=== PATIENT | male | born 1965 | race Caucasian/White ===

== ENCOUNTER 2023-02-23 23:13 | Inpatient (IN) | payer OTHER, MEDICARE, SELFPAY ==
--- NOTE | ~2023-02-23 | XR_ITS ---
XR chest 1V portable DATE: 02/24/2023 01:37 INDICATION: Cough TECHNIQUE: Portable upright AP chest on February 24, 2023 3 hours COMPARISON: January 12, 2006 portable AP chest FINDINGS: Heart size appears within normal limits considering magnification associated with AP projec tion. There is mild aortic unfolding. No hilar or mediastinal enlargement. No pulmonary infiltrate or consolidation, pleural effusion or pulmonary vascular congestion or pneumo thorax. IMPRESSION: No active cardiopulmonary disease Reviewed, dictated and finalized at location [facility].
--- NOTE | ~2023-02-23 | XR_ITS ---
Supine portable views of the abdomen Clinical history: Small bowel obstruction COMPARISON: 02/24/2023 Findings: NG tube in place. Bowel gas pattern is nonspecific. No evidence for obstruction or free air . No abnormal mass lesion or calcification is seen. Lumbosacral spinal fixation hardware again noted. Impression: Nonspecific bowel gas pattern, with NG tube in place. Reviewed, dictated and finalized at location . Impression: Nonspecific bowel gas pattern, with NG tube in place.
--- NOTE | ~2023-02-23 | XR_ITS ---
XR abdomen NG/feed tube insert DATE: 02/24/2023 03:48 INDICATION: NG tube placement TECHNIQUE: Portable upright AP view of the abdomen on 03/06/2023 at 0337 hours COMPARISON: None FINDINGS: An NG tube is present, the distal tip overlying the upper body of the stomach, the proximal side-port approximately 4.5 cm distal to the diaphragmatic hiatus. IMPRESSION: NG tube in the upper body of stomach Reviewed, dictated and finalized at [facility]. Reviewed, dictated and finalized at location A.
--- NOTE | ~2023-02-23 | XR_ITS ---
Supine portable views of the abdomen Clinical history: Small bowel obstruction COMPARISON: 02/25/2023 Findings: NG tube in satisfactory position. Bowel gas pattern is nonspecific. No evidence for free ai r. No abnormal mass lesion or calcification is seen. Stable lumbosacral spinal fixation hardware. Impression: NG tube in place with nonspecific bowel gas pattern. Reviewed, dictated and finalized at [facility]. Impression: NG tube in place with nonspecific bowel gas pattern.
--- NOTE | ~2023-02-23 | XR_ITS ---
Supine and upright views of the abdomen Clinical history: Small bowel obstruction, NG tube placement Findings: NG tube is in satisfactory position. Bowel gas pattern nonspecific. No free air evident. No abnormal mass lesion or calcification is seen. Stable lumbosacral spinal fixation hardware. Impression: Nonspecific bowel gas pattern, with NG tube in place. Reviewed, dictated and finalized at [facility]. Impression: Nonspecific bowel gas pattern, with NG tube in place.
--- NOTE | ~2023-02-23 | CT_ITS ---
EXAMINATION: CT abdomen pelvis w con DATE: 02/24/2023 01:43 INDICATION: Generalized abdominal pain and bloating TECHNIQUE: Computed tomography (CT) of the abdomen and pelvis was performed with 100 CC Omnipaque 350 intravenous contrast. Automated exposure control and iterative reconstruction technique were employe d. Exam dose: 1201.15 mGy-cm total exam DLP. COMPARISON: None. FINDINGS: The included lower lung zones are clear. Normal heart size. No pericardial or pleural effus ion. There is hepatic steatosis. No hepatic space-occupying mass lesion is detected. The gallbladder is un remarkable. No pericholecystic fluid or fat stranding or gallbladder wall thickening. No bile duct or pancreatic duct dilatation. No pancreatic mass lesion, calcification or ductal dilatation. Normal sp lenic size. Normal morphology of the adrenal glands. There is a small right renal cyst. The kidneys are otherwise unremarkable. No urinary tract calculus or hydroureteronephrosis. There is moderate prostatomegaly and some prominent prostate calcification. Moderate diffuse thickeni ng of the urinary bladder wall. Normal caliber of the abdominal aorta. No intraperitoneal or retroperitoneal or pelvic mass lesion or adenopathy or ascites. Normal appendix. There are multiple small bowel air-fluid levels without small bowel dilatation which may be due to enteritis or mild adynamic ileus. No bowel obstruction, bowel wall thickening, pneumat osis or intraperitoneal free air. Small right inguinal fat-containing hernia. Small fat-containing umbilical hernia. Status post posterior and interbody lumbar spine surgical fusion at L4-S1. IMPRESSION: Enteritis or mild adynamic ileus is suggested by numerous small bowel air-fluid levels; no bowel obstruction or intraperitoneal free air Normal appendix Hepatic steatosis Prostate enlargement and calcification Small fat-containing right inguinal hernia and umbilical hernia Status post posterior and interbody spinal fusion at L4-S1 Reviewed, dictated and finalized at [facility]. Reviewed, dictated and finalized at location [facility]. IMPRESSION: Enteritis or mild adynamic ileus is suggested by numerous small jocelyne wel air-fluid levels; no bowel obstruction or intraperitoneal free air Normal appendix Hepatic steatosis Prostate enlargement and calcification Small fat-containing right inguinal hernia and umbilical hernia Status post posterior and interbody spinal fusion at L4-S1
--- NOTE | ~2023-02-23 | XR_ITS ---
EXAMINATION: XR UGI water soluble w sbs DATE: 02/27/2023 13:17 INDICATION: Abdominal distention. TECHNIQUE: Water-soluble contrast was injected into the nasogastric tube. Fluoroscopy of the stomach and small bowel was performed. Fluoroscopy exposure time was 0.1 minutes. Radiographs of the abdomen were obtained. The total number of images was 15. COMPARISON: CT abdomen and pelvis 02/24/2023 FINDINGS: UPPER GASTROINTESTINAL SERIES: The nasogastric tube tip is in the stomach. There is no hiatal hernia. The stomach shows a normal fol ding pattern. SMALL BOWEL SERIES: The small bowel shows a normal folding pattern. Specifically, the terminal ileum is normal. Transit t beltran to the colon was 1 hour. There are changes of anterior and posterior fusion procedures from L4 to S1. IMPRESSION: 1. Normal upper gastrointestinal series. 2. Normal small bowel series. Reviewed, dictated and finalized at location A.
[2023-02-23 23:16] VITALS: BP 151/95; PULSE 120; RESP 28; O2SAT 99
[2023-02-24] VITALS (8 sets, daily range): BP systolic 124–167; BP diastolic 69–98; PULSE 1–111; RESP 15–26; TEMP 36.9–37.6; O2SAT 95–98; BMI 35.7
[2023-02-24 00:36] LABS: Basophils Percent Auto 0.4 % (0.2-1.2); Eosinophils Absolute Auto 0.1 K/mm3 (0-0.3); Eosinophils Percent Auto 0.7 % (0-4.4); Hematocrit 45.8 % (42.0-52.0); Hemoglobin 14.3 g/dL (14.0-18.0); Immature Granulocyte Absolute 0.05 K/mm3 (0.00-0.031); Immature Granulocyte Percent A 0.5 % (0-0.5); Lymphocytes Absolute Auto 0.35 K/mm3 (0.9-3.2); Lymphocytes Percent Auto 3.3 % (18.3-44.2); Mean Corpuscular HGB Conc 31.2 g/dl (32-36); Mean Corpuscular Hemoglobin 23.6 pg (26-34); Mean Corpuscular Volume 75.6 fl (80-100); Mean Platelet Volume 9.5 fl (7.4-10.4); Monocytes Absolute Auto 0.3 K/mm3 (0.1-0.6); Monocytes Percent Auto 2.4 % (2.6-8.5); Neutrophils Absolute Auto 9.8 K/mm3 (1.3-6.7); Neutrophils Percent Auto 92.7 % (45.5-73.1); Platelet Count Result 322 k/mm3 (150-375); Red Blood Count 6.06 M/mm3 (4.6-6.20); Red Cell Distribution Width 21.3 % (11.5-14.5); White Blood Count 10.6 K/mm3 (4.5-10.0)
[2023-02-24 00:46] LABS: Alanine Aminotransferase 35 U/L (6-50); Albumin Level 4.7 g/dL (3.5-5.1); Alkaline Phosphatase 76 U/L (38-126); Anion Gap 10 mmol/L (8-16); Aspartate Amino Transferase 37 U/L (17-59); Bilirubin,Total 0.6 mg/dL (0.2-1.3); Blood Urea Nitrogen 17 mg/dL (9-20); Calcium 8.5 mg/dL (8.4-10.2); Carbon Dioxide 25 mmol/L (22-30); Chloride 103 mmol/L (98-107); Estimated CRCL calculation 68 ml/min; Estimated Glomerular Filt Rate > 60; Glucose 162 mg/dL (65-110); Lipase 100 U/L (23-300); Sodium 138 mmol/L (137-145)
[2023-02-24 01:01] LABS: Appearance Urine Clear (Clear); Bacteria Urine None Seen /hpf; Bilirubin Urine Negative (Negative); Blood Urine Negative (Negative); Color Urine Yellow (Yellow); Glucose Urine UA Trace mg/dL (Negative); Ketones Urine Trace mg/dL (Negative); Leukocyte Esterase Ur Negative LEU/UL (Negative); Nitrate Urine Negative (Negative); Non Pathogenic Casts 0-2; Protein Urine Trace mg/dL (Negative); RBC Urine 0-2 /hpf (0-2); Specific Grav Ur 1.028 (1.001-1.035); Squamous Epithelial Cell Urine None seen /hpf (Few); WBC Urine 0-5 /hpf; pH Urine 5.5 (5.0-9.0)
[2023-02-24 01:06] LABS: Ovalocytes 1+ (NORMAL); Platelet Estimate Adequate (Adequate); Schistocytes None Seen (NORMAL)
[2023-02-24 01:10] LABS: Add Urine Microscopic? YES
--- NOTE | 2023-02-24 01:24 | ED.ABDPAIN ---
HPI - Abdominal Pain General Chief Complaint: Abdominal Pain <Kitty Meyer PA-C - Last Filed: 02/24/23 17:08> Stated Complaint: abd'l pain, n/v, headache <Kitty Meyer PA-C - Last Filed: 02/24/23 17:08> Time Seen by Provider: 02/23/23 23:47 <Kitty Meyer PA-C - Last Filed: 02/24/23 17:08> History of Present Illness HPI narrative: 57-year-old male with a history of GERD reports for evaluation of abdominal pain and bloating for 6 hours with 3 episodes of nonbloody vomiting. Patient reports the abdominal pain is worse in the right upper quadrant and periumbilical region. He is also complaining of a nonproductive cough that started yesterday. Reports having hot and cold flashes. Last BM prior to arrival, apeared small in volume per patient. Denies fever, body aches, chest pain, melena, hematochezia, hematemesis, urinary complaints. No history of prior abdominal surgeries. Patient denies obstipation. <Kitty Meyer PA-C - Last Filed: 02/24/23 17:08> Related Data Home Medications: Home Medications Medication Instructions Recorded Confirmed albuterol sulfate 90 mcg/actuation 2 puff inhalation Q4-6H PRN 02/23/23 02/24/23 aerosol inhaler Shortness Of Breath budesonide 160 mcg-glycopyr 9 2 inh inhalation BID 02/23/23 02/24/23 mcg-formot 4.8 mcg/actuation HFA inhaler (Breztri Aerosphere) bupropion HCl 150 mg tablet,12 hr 150 mg PO BID 02/23/23 02/24/23 sustained-release buspirone 10 mg tablet 10 mg PO TIDWMEAL 02/23/23 02/24/23 ferrous sulfate 325 mg (65 mg 325 mg PO DAILY 02/23/23 02/24/23 iron) tablet furosemide 20 mg tablet 20 mg PO DAILY 02/23/23 02/24/23 hydrochlorothiazide 25 mg tablet 25 mg PO DAILY 02/23/23 02/24/23 losartan 100 mg tablet 100 mg PO DAILY 02/23/23 02/24/23 meloxicam 15 mg tablet 15 mg PO DAILY 02/23/23 02/24/23 omeprazole 40 mg capsule,delayed 40 mg PO DAILY 02/23/23 02/24/23 release amlodipine 10 mg tablet 10 mg PO DAILY 02/24/23 02/24/23 fluticasone propionate 50 1 spray intranasal DAILY 02/24/23 02/24/23 mcg/actuation nasal spray,suspension magnesium oxide 400 mg (241.3 mg 400 mg PO EVERY OTHER DAY 02/24/23 02/24/23 magnesium) tablet potassium 99 mg tablet 99 mg PO DAILY 02/24/23 02/24/23 <Kitty Meyer PA-C - Last Filed: 02/24/23 17:08> Allergies/Adverse Reactions: Allergies Allergy/AdvReac Type Severity Reaction Status Date / Time No Known Allergies Allergy Verified 02/23/23 23:25 <Kitty Meyer PA-C - Last Filed: 02/24/23 17:08> Review of Systems Review of Systems: CONSTITUTIONAL: Denies feve EYES: Denies visual changes, redness, or discharge. ENT: Denies rhinorrhea, congestion, sore throat, or otalgia. CARDIOVASCULAR: Denies chest pain, palpitations, or edema. RESPIRATORY: See HPI GASTROINTESTINAL: See HPI GENITOURINARY: Denies dysuria or hematuria. SKIN: Denies rash or itching. MUSCULOSKELETAL: Denies joint pain, or myalgia. NEUROLOGIC: Denies headache, numbness, dizziness, or weakness. PSYCHIATRIC: Denies anxiety or depression. <Kitty Meyer PA-C - Last Filed: 02/24/23 17:08> [facility] Social History Social History: Social History Smoking status: Former smoker Alcohol intake: current Drinks per week: 6 Substance use: never Lack of Transportation: No Lack of Food: Never True Current Housing: I Have Housing Concerned About Future Housing: No Difficulty Paying Gas/Electric Bills: No Difficulty Paying for Meds: No Currently Unemployed: No Education: High School Diploma/GED Difficulty w/ Childcare or Family Care: No Spiritual care concerns: No <Kitty Meyer PA-C - Last Filed: 02/24/23 17:08> Exam Narrative: GENERAL: Well-appearing, well-nourished, and in no acute distress. Patient resting in the exam bed. He is pleasant and conversational. HEAD: Normocephalic, atraumatic. EYES: PERRLA and EO
[2023-02-24] MEDS: MORPHINE SULFATE (*CRX) 4 MG/ML INJ IV PUSH ×3 (01:55→15:58)
[2023-02-24] MEDS: SODIUM CHLORIDE 0.9% IV 1,000 ML 999 ML IV CONT (01:55)
[2023-02-24] MEDS: ONDANSETRON INJ 4 MG/2 ML VIAL IV PUSH ×5 (01:55→20:24)
[2023-02-24 01:57] LABS: Lipase 82 U/L (23-300)
[2023-02-24 02:00] LABS: Lactic Acid Reflex 1.9 mmol/L (0.7-2.0)
--- NOTE | 2023-02-24 03:44 | PM.IMHP ---
H&P: HPI History of Present Illness Date/Time: 02/24/23 03:44 Chief Complaint: Nausea vomiting Narrative: This is a 57-year-old male with past medical history significant for hypertension, asthma, obesity. Patient presents to the emergency room due to nausea vomiting abdominal distention constipation for the last few hours denies any hematemesis, coffee-ground emesis, change in stool character, no weight loss, no melena, no bright red blood per rectum, has been in his usual state of health. Patient had several episodes of vomiting prior to coming to the emergency room and has not been able to pass gas preliminary workup has been significant for fluid feel the small bowel loops air-fluid levels. Patient is been admitted for further evaluation management and treatment. CT of abdomen and pelvis was reported as: FINDINGS: The included lower lung zones are clear. Normal heart size. No pericardial or pleural effusion. There is hepatic steatosis. No hepatic space-occupying mass lesion is detected. The gallbladder is unremarkable. No pericholecystic fluid or fat stranding or gallbladder wall thickening. No bile duct or pancreatic duct dilatation. No pancreatic mass lesion, calcification or ductal dilatation. Normal splenic size. Normal morphology of the adrenal glands. There is a small right renal cyst. The kidneys are otherwise unremarkable. No urinary tract calculus or hydroureteronephrosis. There is moderate prostatomegaly and some prominent prostate calcification. Moderate diffuse thickening of the urinary bladder wall. Normal caliber of the abdominal aorta. No intraperitoneal or retroperitoneal or pelvic mass lesion or adenopathy or ascites. Normal appendix. There are multiple small bowel air-fluid levels without small bowel dilatation which may be due to enteritis or mild adynamic ileus. No bowel obstruction, bowel wall thickening, pneumatosis or intraperitoneal free air. Small right inguinal fat-containing hernia. Small fat-containing umbilical hernia. Status post posterior and interbody lumbar spine surgical fusion at L4-S1. IMPRESSION:? Enteritis or mild adynamic ileus is suggested by numerous small bowel air-fluid levels; no bowel obstruction or intraperitoneal free air Normal appendix Hepatic steatosis Prostate enlargement and calcification Small fat-containing right inguinal hernia and umbilical hernia Status post posterior and interbody spinal fusion at L4-S1 Review of Systems Review of Systems: Nausea, vomiting, constipation, abdominal distension. Constitutional: Constitutional: Denies chills, Denies fever(s), Denies malaise and Denies weakness ENT: Denies dysphagia and Denies odynophagia Cardiovascular: Cardiovascular: Denies chest pain, Denies radiating jaw, neck or arm pain, Denies palpitations and Denies dyspnea on exertion Respiratory: Respiratory: Denies chest congestion, Denies cough and Denies dyspnea on exertion Gastrointestinal: Gastrointestinal: Reports abdominal pain, Denies melena, Denies change in stool character, Denies coffee ground emesis, Denies constipation, Denies dyspepsia, Denies diarrhea, Reports nausea and Reports vomiting Genitourinary: Genitourinary: Denies dysuria Musculoskeletal: Musculoskeletal: Denies back pain, Denies joint swelling and Denies muscle weakness Integumentary/Breasts: Skin/Breast: Denies rash Neurologic: Denies focal weakness and Denies Sensory deficit (Neuro) Psychiatric: Psychiatric: Reports no additional psychiatric complaints and Reports as per HPI Endocrine: Endocrine: Denies cold intolerance, Denies flushing, Denies heat intolerance, Denies polyphagia, Denies polydipsia and Denies palpitations Hematologic/Lymphatic: Hematologic/Lymphatic: Reports no additional hematologic/lymphatic complaints and Reports as per HPI Allergic/Immunologic: Allergic/Immunologic: Reports no additional allergic/immunologic complaints and Reports as per HPI PMF Social History Social History (Reviewe
--- NOTE | 2023-02-24 04:51 | ADMGEN ---
This patient, Peter Zuleta, was admitted to 3 [facility] Surg Room 310-01. Patient/family oriented to hospital policies and general routines including ID bracelet, bed and alarms, visiting hours, pain management, procedures, bathroom and other care routines, personal items, smoking policy, room service/diet, and visiting hours. Information on how to activate the Rapid Response Team has been discussed. Patient/Family are encouraged to report perceived risks to care and to ask questions if they do not understand what they are told or what they should do.
[2023-02-24] MEDS: SODIUM CHLORIDE 0.9% IV 1,000 ML 125 ML IV CONT ×3 (05:10→20:24)
[2023-02-24] MEDS: FLUTICASONE PROPIONATE 0.05% NA SPR 16 GM BTL (*BKC) 1 SPRAY NASAL (08:50)
--- NOTE | 2023-02-24 10:15 | PM.IMPN ---
Progress Note: A&P Assessment and Plan (1) SBO (small bowel obstruction): Code(s): K56.609 - Unspecified intestinal obstruction, unspecified as to partial versus complete obstruction Status: Acute Assessment and Plan: Admit to regular medical floor Strict NPO NG to low intermittent suction General surgery consult Supportive care IV fluids Nausea vomiting HPI-Narrative: This is a 57-year-old male with past medical history significant for hypertension, asthma, obesity.? Patient presents to the emergency room due to nausea vomiting abdominal distention constipation for the last few hours denies any hematemesis, coffee-ground emesis, change in stool character, no weight loss, no melena, no bright red blood per rectum, has been in his usual state of health.? Patient had several episodes of vomiting prior to coming to the emergency room and has not been able to pass gas preliminary workup has been significant for small-bowel obstruction.? Patient is been admitted for further evaluation management and treatment. 02/24/2023 interval history: patient stats this is first time he has SBO, he does not have any history of abdominal surgery, he not passing any gas, NG tube is place and draining, patient will be seen by surgery services and further recommendation to follow. (2) Nausea & vomiting: Qualifiers: Vomiting type: unspecified Qualified Code(s): R11.2 - Nausea with vomiting, unspecified Code(s): R11.2 - Nausea with vomiting, unspecified Status: Acute Assessment and Plan: NG placed Supportive care Subjective Date/time seen: 02/24/23 10:15 Nausea vomiting HPI-Narrative: This is a 57-year-old male with past medical history significant for hypertension, asthma, obesity.? Patient presents to the emergency room due to nausea vomiting abdominal distention constipation for the last few hours denies any hematemesis, coffee-ground emesis, change in stool character, no weight loss, no melena, no bright red blood per rectum, has been in his usual state of health.? Patient had several episodes of vomiting prior to coming to the emergency room and has not been able to pass gas preliminary workup has been significant for small-bowel obstruction.? Patient is been admitted for further evaluation management and treatment. 02/24/2023 interval history: patient stats this is first time he has SBO, he does not have any history of abdominal surgery, he not passing any gas, NG tube is place and draining, patient will be seen by surgery services and further recommendation to follow. Review of Systems Review of Systems: All systems reviewed & are unremarkable except as noted in HPI and below (HPI and those items noted below) Constitutional: Constitutional: Denies chills, Denies fever(s), Denies malaise and Denies weakness Cardiovascular: Cardiovascular: Denies chest pain, Denies diaphoresis, Denies dyspnea and Denies paroxysmal nocturnal dyspnea Respiratory: Respiratory: Denies chest congestion, Denies cough and Denies dyspnea Integumentary/Breasts: Skin/Breast: Denies lesions and Denies rash Exam Narrative: Morbidly obese Patient is comfortable, NAD HEENT: eyes are clear and none icteric, NGtube in place LUNGS: Normal respiratory effort ABD: Distended Lower extremities: no edema SKIN: nonjaundiced Neuro: grossly intact. Objective Data Vital Signs Vital Signs: Vital Signs - 24 hr 02/23/23 23:16 02/24/23 00:36 02/24/23 01:57 Temperature Pulse Rate 120 H 102 H 98 Respiratory Rate 28 H 20 15 Blood Pressure 151/95 H 167/98 H 158/94 H Pulse Oximetry 99 98 98 Oxygen Delivery Room Air 02/24/23 02:57 02/24/23 04:28 02/24/23 05:13 Temperature 99.1 F Pulse Rate 1 L 111 H 98 Respiratory Rate 26 H 23 H 22 H Blood Pressure 124/69 128/89 133/80 Pulse Oximetry 97 96 95 Oxygen Delivery Intake/Output Intake/Output: Intake & Output 02/21/23 02/22/23 02/23/23 02/24/23 23:59
--- NOTE | 2023-02-24 10:15 | PM.CNGS ---
Assessment and Plan Assessment and plan (1) Gastroenteritis: Code(s): K52.9 - Noninfective gastroenteritis and colitis, unspecified Status: Acute Assessment and Plan: Patient has evidence of ileus or enteritis on imaging. Stomach very dilated and a lot of vomiting with abdominal distension. Recommend continue nasogastric tube and IV fluids a post well as p.r.n. analgesics. Will follow with daily exam, labs, plain films of the abdomen. I doubt that surgery will be needed and explained this to the patient. Usually, these illnesses resolve without treatment other than symptoms. If no improvement by tomorrow, consider Gastroenterology consultation. Will follow along with you. (2) Nausea & vomiting: Qualifiers: Vomiting type: unspecified Qualified Code(s): R11.2 - Nausea with vomiting, unspecified Code(s): R11.2 - Nausea with vomiting, unspecified Status: Acute Assessment and Plan: Associated with gastroenteritis above. History of Present Illness Consult details Consult date: 02/24/23 Requesting physician: Kitty Meyer PA-C Narrative: Patient is a 57-year-old man who had supper last night around 5:30 p.m.. About an hour or hour and a half later he started noticing that his abdomen was very distended and very hard. Soon thereafter he developed emesis. After the emesis stopped, he did feel better. He thought if he had a bowel movement he would feel even better but was unable. His abdomen then became hard and distended again. This was followed by more emesis. When his abdomen becomes distended he develops diffuse abdominal pain. He has had bowel movements and in fact had 1 this morning. He does not recall being around anyone that had a GI illness. He has had no previous abdominal surgery. He did have a tubular adenoma removed from his duodenum in 2019. Apparently, there was concern that this had not been removed completely. Following that, he had repeat EGDs every 6 months. His last 1 was in December. There was no evidence of the adenoma at the time of that upper endoscopy in December. He does recall that following this EGD, he did develop the severe abdominal distension that he has been having recently but it went away fairly quickly and was not associated with vomiting. She he has had a nasogastric tube in overnight. He does feel better this morning. The pain in the abdomen really only occurs when his abdomen is distended and hard. He had a CT scan in the emergency room. I was called by the emergency room physicians who, by their own reading, thought that the CT scan showed a small-bowel obstruction. I reviewed the CT scan this morning with Dr. Upton, he feels this shows more of an ileus or enteritis pattern. He does not see an obstruction. Patient is seen now in consultation for his abdominal complaints. Review of Systems Review of Systems: All systems reviewed & are unremarkable except as noted in HPI and below (HPI and those items noted below) Constitutional: Constitutional: Denies chills and Denies fever(s) Cardiovascular: Cardiovascular: Denies chest pain, Denies diaphoresis, Denies dyspnea and Denies paroxysmal nocturnal dyspnea Respiratory: Respiratory: Denies chest congestion, Denies cough and Denies dyspnea Integumentary/Breasts: Skin/Breast: Denies lesions and Denies rash [facility] Social History Social History Smoking status: Former smoker Alcohol intake: current Drinks per week: 6 Substance use: never Lack of Transportation: No Lack of Food: Never True Current Housing: I Have Housing Concerned About Future Housing: No Difficulty Paying Gas/Electric Bills: No Difficulty Paying for Meds: No Currently Unemployed: No Education: High School Diploma/GED Difficulty w/ Childcare or Family Care: No Spiritual care concerns: No Meds Home Medications and Allergies Home Medications
[2023-02-24] MEDS: PANTOPRAZOLE SODIUM IV 40 MG VIAL IV PUSH (12:01)
[2023-02-24] MEDS: ENOXAPARIN 40 MG/0.4 ML SYRINGE SUB-Q (12:01)
[2023-02-24] MEDS: buPROPion HCL SR (12 HR) 150 MG TAB PO (20:22)
[2023-02-24] MEDS: IBUPROFEN IV 800 MG/200 ML 800 MG/200 ML BAG 400 MG IVPB (20:23)
[2023-02-25 06:03] VITALS: BP 104/59; PULSE 68; RESP 18; TEMP 36.3; O2SAT 96
[2023-02-25 06:46] LABS: Hematocrit 37.5 % (42.0-52.0); Hemoglobin 11.7 g/dL (14.0-18.0); Mean Corpuscular HGB Conc 31.2 g/dl (32-36); Mean Corpuscular Hemoglobin 23.5 pg (26-34); Mean Corpuscular Volume 75.5 fl (80-100); Mean Platelet Volume 9.8 fl (7.4-10.4); Platelet Count Result 192 k/mm3 (150-375); Red Blood Count 4.97 M/mm3 (4.6-6.20); Red Cell Distribution Width 20.3 % (11.5-14.5)
[2023-02-25 07:04] LABS: Anion Gap 5 mmol/L (8-16); Blood Urea Nitrogen 15 mg/dL (9-20); Calcium 6.6 mg/dL (8.4-10.2); Carbon Dioxide 25 mmol/L (22-30); Chloride 106 mmol/L (98-107); Estimated CRCL calculation 81 ml/min; Estimated Glomerular Filt Rate > 60; Glucose 93 mg/dL (65-110); Magnesium 1.8 mg/dL (1.6-2.3); Potassium 2.9 mmol/L (3.4-5.0); Sodium 136 mmol/L (137-145)
[2023-02-25 07:30] VITALS: PULSE 76; RESP 16; O2SAT 96
[2023-02-25] MEDS: FLUTICASONE/UMECLIDIN/VILANTER 100-62.5-25 MCG ELLIPTA 1 PUFF INHALATION (07:30)
[2023-02-25 07:43] VITALS: BP 123/73
[2023-02-25] MEDS: ONDANSETRON INJ 4 MG/2 ML VIAL IV PUSH ×3 (08:15→21:11)
[2023-02-25] MEDS: IBUPROFEN IV 800 MG/200 ML 800 MG/200 ML BAG 400 MG IVPB (08:18)
[2023-02-25] MEDS: FLUTICASONE PROPIONATE 0.05% NA SPR 16 GM BTL (*BKC) 1 SPRAY NASAL (08:22)
--- NOTE | 2023-02-25 08:22 | PM.PNGS ---
Progress Note: A&P Assessment and Plan (1) Gastroenteritis: Code(s): K52.9 - Noninfective gastroenteritis and colitis, unspecified Status: Acute Assessment and Plan: Fairly certain that patient has enterocolitis. I have seen this a few times this spring. Patient is present with abdominal distention and concern for obstruction. They have vomiting but also have diarrhea. With high NG output, would continue NG tube for now. Continue fluid resuscitation, daily exam, labs, KUB. Will likely resolve without treatment other than supportive care. Very unlikely patient will require surgery. Subjective Subjective Date/Time Seen: 02/25/23 08:22 Patient reports: feels better, pain is less, bowel movement (Multiple bowel movements) and afebrile Review of Systems Review of Systems: All systems reviewed & are unremarkable except as noted in HPI and below (HPI) Exam Const: General: comfortable and no acute distress; No confusion Orientation/consciousness: patient oriented x3 and No confusion GI: Inspection: distended, obesity and visible herniation (Umbilical) GI Palp: Yes Soft to palpation (Much softer than yesterday), No Tenderness to palpation present (GI), No Guarding due to palpation present (GI), Yes Hernia present (Reducible umbilical hernia) and No Rebound tenderness present Auscultation: Hypoactive bowel sounds present Neuro: General: patient oriented x3, no focal motor deficits and No confusion Extrem: General: no calf tenderness and no edema Psych: Affect: normal affect Insight: Good insight present (Psych) Judgement: Good judgement present (Psych) Objective Data Vital Signs Vital Signs: Vital Signs - 24 hr 02/24/23 08:50 02/24/23 14:00 02/24/23 20:36 Temperature 37.6 C 36.9 C Pulse Rate 99 97 Respiratory Rate 20 16 Blood Pressure 124/74 124/78 Pulse Oximetry 96 96 Oxygen Delivery Room Air 02/24/23 20:30 02/25/23 06:03 02/25/23 07:43 Temperature 36.3 C L Pulse Rate 97 68 Respiratory Rate 16 18 Blood Pressure 104/59 L 123/73 Pulse Oximetry 96 96 Oxygen Delivery Room Air Intake/Output Intake/Output: Intake & Output 02/22/23 02/23/23 02/24/23 02/25/23 23:59 23:59 23:59 23:59 Intake Total 3000 Output Total 2125 1350 Balance 875 -1350 Large volume NG output yesterday and since midnight. 2000 cc yesterday, 1350 since midnight. Meds/Results Medications: Active Medications Generic Name Dose Route Start Last Admin Trade Name Freq PRN Reason Stop Dose Admin Albuterol 2 puff 02/24/23 07:45 Albuterol Sulfate (*Sp) Aerosol 1 Puff INHALATION Q4-6H PRN Shortness Of Breath Amlodipine Besylate 10 mg 02/24/23 09:00 Amlodipine Besylate 5 Mg Tablet PO DAILY MAIKEL Bupropion HCl 150 mg 02/24/23 09:00 Bupropion Hcl Sr (12 Hr) 150 Mg Tab PO BID MAIKEL Bupropion HCl 150 mg 02/24/23 21:00 02/24/23 20:22 Bupropion Hcl Sr (12 Hr) 150 Mg Tab PO 150 mg Q12HR MAIKEL Administration Buspirone HCl 10 mg 02/24/23 09:00 Buspirone Hcl 10 Mg Tablet PO TIDWM [facility] Enoxaparin Sodium 40 mg 02/25/23 09:00 Enoxaparin 40 Mg/0.4 Ml Syringe SUB-Q DAILY [facility] Ferrous Sulfate 324 mg 02/24/23 09:00 Ferrous Sulfate 324 Mg Tablet PO DAILY [facility] Fluticasone Propionate 1 spray 02/24/23 09:00 02/24/23 08:50 Fluticasone Propionate 0.05% Na Spr 16 Gm Btl (*Bkc) NASAL 1 spray DAILY MAIKEL Administration Fluticasone/Umeclidinium/Vilanterol 1 puff 02/24/23 09:00 02/24/23 15:57 Fluticasone/Umeclidin/Vilanter 100-62.5-25 Mcg Ellipta INHALATION Not Given DAILY MAIKEL Furosemide 20 mg 02/24/23 09:00 Furosemide 20 Mg Tablet PO DAILY MAIKEL Hydrochlorothiazide 25 mg 02/24/23 09:00 Hydrochlorothiazide 25 Mg Tablet PO DAILY [facility] Sodium Chloride 1,000 mls @ 125 mls/hr 02/24/23 03:30 02/24/23 20:24 Normal Saline Iv IV CONT 125 mls/hr .Q8H MAIKEL Administration Ibuprofen 800 mg in
[2023-02-25] MEDS: PANTOPRAZOLE SODIUM IV 40 MG VIAL IV PUSH (08:24)
[2023-02-25] MEDS: ENOXAPARIN 40 MG/0.4 ML SYRINGE SUB-Q (08:25)
[2023-02-25] MEDS: buPROPion HCL SR (12 HR) 150 MG TAB PO ×2 (08:27→16:25)
[2023-02-25] MEDS: FERROUS SULFATE 324 MG TABLET PO (08:30)
[2023-02-25] MEDS: LOSARTAN POTASSIUM 100 MG TABLET PO (08:30)
[2023-02-25] MEDS: hydroCHLOROthiazide 25 MG TABLET PO (08:30)
[2023-02-25] MEDS: MELOXICAM 7.5 MG TABLET 15 MG PO (08:30)
[2023-02-25] MEDS: amLODIPine BESYLATE 5 MG TABLET 10 MG PO (08:30)
[2023-02-25] MEDS: FUROSEMIDE 20 MG TABLET PO (08:30)
[2023-02-25] MEDS: POTASSIUM CHLORIDE INJ 40 MEQ in SODIUM CHLORIDE 0.9% IV 500 ML 130 MEQ IVPB (09:36)
[2023-02-25] MEDS: busPIRone HCL 10 MG TABLET PO ×2 (11:47→16:25)
--- NOTE | 2023-02-25 11:51 | PM.IMPN ---
Progress Note: A&P Assessment and Plan (1) SBO (small bowel obstruction): Code(s): K56.609 - Unspecified intestinal obstruction, unspecified as to partial versus complete obstruction Status: Acute Assessment and Plan: Admit to regular medical floor Strict NPO NG to low intermittent suction General surgery consult Supportive care IV fluids HPI-Narrative: This is a 57-year-old male with past medical history significant for hypertension, asthma, obesity.? Patient presents to the emergency room due to nausea vomiting abdominal distention constipation for the last few hours denies any hematemesis, coffee-ground emesis, change in stool character, no weight loss, no melena, no bright red blood per rectum, has been in his usual state of health.? Patient had several episodes of vomiting prior to coming to the emergency room and has not been able to pass gas preliminary workup has been significant for small-bowel obstruction.? Patient is been admitted for further evaluation management and treatment. 02/25/2023 interval history:?patient stats this is first time he has SBO, he does not have any history of abdominal surgery, today he passing gas, NG tube is place and good amount draining, patient is seen by surgery services suspect patient has enterocolitis, recommended continue supportive care with hydration, NGtube and NPO, will resolve by itself, continue to monitor and further recommendation to follow. (2) Nausea & vomiting: Qualifiers: Vomiting type: unspecified Qualified Code(s): R11.2 - Nausea with vomiting, unspecified Code(s): R11.2 - Nausea with vomiting, unspecified Status: Acute Assessment and Plan: NG placed Supportive care Subjective Date/time seen: 02/25/23 11:51 HPI-Narrative: This is a 57-year-old male with past medical history significant for hypertension, asthma, obesity.? Patient presents to the emergency room due to nausea vomiting abdominal distention constipation for the last few hours denies any hematemesis, coffee-ground emesis, change in stool character, no weight loss, no melena, no bright red blood per rectum, has been in his usual state of health.? Patient had several episodes of vomiting prior to coming to the emergency room and has not been able to pass gas preliminary workup has been significant for small-bowel obstruction.? Patient is been admitted for further evaluation management and treatment. 02/25/2023 interval history:?patient stats this is first time he has SBO, he does not have any history of abdominal surgery, today he passing gas, NG tube is place and good amount draining, patient is seen by surgery services suspect patient has enterocolitis, recommended continue supportive care with hydration and NPO, will resolve by itself, continue to monitor and further recommendation to follow. Review of Systems Review of Systems: All systems reviewed & are unremarkable except as noted in HPI and below (HPI and those items noted below) Exam Narrative: Morbidly obese Patient is comfortable, NAD HEENT: eyes are clear and none icteric, NGtube in place LUNGS: Normal respiratory effort ABD: Distended Lower extremities: no edema SKIN: nonjaundiced Neuro: grossly intact. Objective Data Vital Signs Vital Signs: Vital Signs - 24 hr 02/24/23 14:00 02/24/23 20:36 02/24/23 20:30 Temperature 99.6 F 98.5 F Pulse Rate 99 97 97 Respiratory Rate 20 16 16 Blood Pressure 124/74 124/78 Pulse Oximetry 96 96 96 Oxygen Delivery Room Air 02/25/23 06:03 02/25/23 07:43 02/25/23 07:30 Temperature 97.4 F L Pulse Rate 68 76 Respiratory Rate 18 16 Blood Pressure 104/59 L 123/73 Pulse Oximetry 96 96 Oxygen Delivery Room Air 02/25/23 07:30 Temperature Pulse Rate 76 Respiratory Rate 16 Blood Pressure Pulse Oximetry Oxygen Delivery Intake/Output Intake/Output: Intake & Output 02/22/23 02/23/23 02/24/23 02/25/23 23:59 23:59 23:59 23:59
[2023-02-25 14:00] VITALS: BP 120/80; PULSE 70; RESP 20; TEMP 36.7; O2SAT 94
[2023-02-25] MEDS: SODIUM CHLORIDE 0.9% IV 1,000 ML 125 ML IV CONT (15:50)
[2023-02-25 20:00] VITALS: PULSE 70; RESP 20; O2SAT 94
[2023-02-25] MEDS: MORPHINE SULFATE (*CRX) 2 MG/ML INJ IV PUSH (21:11)
[2023-02-25 22:00] VITALS: BP 112/66; PULSE 76; RESP 13; TEMP 37.3; O2SAT 93
[2023-02-26] MEDS: SODIUM CHLORIDE 0.9% IV 1,000 ML 125 ML IV CONT
[2023-02-26] MEDS: IBUPROFEN IV 800 MG/200 ML 800 MG/200 ML BAG 400 MG IVPB ×2 (02:30→21:28)
[2023-02-26] MEDS: ONDANSETRON INJ 4 MG/2 ML VIAL IV PUSH ×2 (02:35→21:29)
[2023-02-26 05:44] VITALS: BP 128/80; PULSE 72; RESP 16; TEMP 36.4; O2SAT 91
[2023-02-26 07:08] LABS: Hematocrit 37.2 % (42.0-52.0); Hemoglobin 11.4 g/dL (14.0-18.0); Mean Corpuscular HGB Conc 30.6 g/dl (32-36); Mean Corpuscular Hemoglobin 23.5 pg (26-34); Mean Corpuscular Volume 76.5 fl (80-100); Mean Platelet Volume 9.4 fl (7.4-10.4); Platelet Count Result 194 k/mm3 (150-375); Red Blood Count 4.86 M/mm3 (4.6-6.20); Red Cell Distribution Width 20.1 % (11.5-14.5); White Blood Count 4.5 K/mm3 (4.5-10.0)
[2023-02-26 07:20] LABS: Anion Gap 10 mmol/L (8-16); Blood Urea Nitrogen 11 mg/dL (9-20); Carbon Dioxide 22 mmol/L (22-30); Chloride 108 mmol/L (98-107); Estimated CRCL calculation 89 ml/min; Estimated Glomerular Filt Rate > 60; Glucose 72 mg/dL (65-110); Magnesium 2.1 mg/dL (1.6-2.3); Potassium 2.9 mmol/L (3.4-5.0); Sodium 140 mmol/L (137-145)
--- NOTE | 2023-02-26 08:22 | PM.PNGS ---
Progress Note: A&P Assessment and Plan (1) Gastroenteritis: Code(s): K52.9 - Noninfective gastroenteritis and colitis, unspecified Status: Acute Assessment and Plan: Still extremely high outputs from nasogastric tube of 3-1/2 L yesterday. Abdomen less distended and much softer. Do not feel this represents small-bowel obstruction. Diarrhea is improving. Continue IV fluid resuscitation, labs, serial abdominal exam and plain films. Will go ahead and consult Gastroenterology. (2) Hypokalemia due to excessive gastrointestinal loss of potassium: Code(s): E87.6 - Hypokalemia Status: Acute Assessment and Plan: Will increase potassium supplementation. Due to excessively high NG output. Subjective Subjective Date/Time Seen: 02/26/23 08:22 Patient reports: no new complaints, pain is less, diarrhea (Improving) and afebrile Review of Systems Review of Systems: All systems reviewed & are unremarkable except as noted in HPI and below (HPI) Exam Const: General: comfortable and no acute distress; No confusion Orientation/consciousness: patient oriented x3 and No confusion GI: Inspection: distended, obesity and visible herniation GI Palp: Yes Soft to palpation, No Tenderness to palpation present (GI), No Guarding due to palpation present (GI), Yes Hernia present (Umbilical, no change) and No Rebound tenderness present Neuro: General: patient oriented x3, no focal motor deficits and No confusion Extrem: General: no calf tenderness and no edema Psych: Affect: normal affect Insight: Good insight present (Psych) Judgement: Good judgement present (Psych) Objective Data Vital Signs Vital Signs: Vital Signs - 24 hr 02/25/23 14:00 02/25/23 20:00 02/25/23 22:00 Temperature 36.7 C 37.3 C Pulse Rate 70 70 76 Respiratory Rate 20 20 13 Blood Pressure 120/80 112/66 Pulse Oximetry 94 94 93 Oxygen Delivery Room Air 02/26/23 05:44 Temperature 36.4 C L Pulse Rate 72 Respiratory Rate 16 Blood Pressure 128/80 Pulse Oximetry 91 Oxygen Delivery Intake/Output Intake/Output: Intake & Output 02/23/23 02/24/23 02/25/23 02/26/23 23:59 23:59 23:59 23:59 Intake Total 3000 2720 Output Total 2125 3450 1000 Balance 875 -730 -1000 3500 cc out nasogastric tube yesterday. Fewer bowel movements than the day before. Meds/Results Medications: Active Medications Generic Name Dose Route Start Last Admin Trade Name Nnii PRN Reason Stop Dose Admin Albuterol 2 puff 02/24/23 07:45 Albuterol Sulfate (*Sp) Aerosol 1 Puff INHALATION Q4-6H PRN Shortness Of Breath Amlodipine Besylate 10 mg 02/24/23 09:00 02/25/23 08:30 Amlodipine Besylate 5 Mg Tablet PO 10 mg DAILY MAIKEL Administration Bupropion HCl 150 mg 02/24/23 09:00 02/25/23 16:25 Bupropion Hcl Sr (12 Hr) 150 Mg Tab PO 150 mg BID MAIKEL Administration Buspirone HCl 10 mg 02/24/23 09:00 02/25/23 16:25 Buspirone Hcl 10 Mg Tablet PO 10 mg TIDWM MAIKEL Administration Enoxaparin Sodium 40 mg 02/25/23 09:00 02/25/23 08:25 Enoxaparin 40 Mg/0.4 Ml Syringe SUB-Q 40 mg DAILY MAIKEL Administration Ferrous Sulfate 324 mg 02/24/23 09:00 02/25/23 08:30 Ferrous Sulfate 324 Mg Tablet PO 324 mg DAILY MAIKEL Administration Fluticasone Propionate 1 spray 02/24/23 09:00 02/25/23 08:22 Fluticasone Propionate 0.05% Na Spr 16 Gm Btl (*Bkc) NASAL 1 spray DAILY MAIKEL Administration Fluticasone/Umeclidinium/Vilanterol 1 puff 02/24/23 09:00 02/25/23 18:50 Fluticasone/Umeclidin/Vilanter 100-62.5-25 Mcg Ellipta INHALATION Not Given DAILY MAIKEL Furosemide 20 mg 02/24/23 09:00 02/25/23 08:30 Furosemide 20 Mg Tablet PO 20 mg DAILY MAIKEL Administration Hydrochlorothiazide 25 mg 02/24/23 09:00 02/25/23 08:30 Hydrochlorothiazide 25 Mg Tablet PO 25 mg DAILY MAIKEL Administration Sodium Chloride 1,000 mls @ 125 mls/hr 02/24/23 03:30 02/26/23 00:00 Normal Saline Iv
[2023-02-26 08:30] VITALS: PULSE 71; O2SAT 92
[2023-02-26] MEDS: LOSARTAN POTASSIUM 100 MG TABLET PO (08:34)
[2023-02-26] MEDS: busPIRone HCL 10 MG TABLET PO ×3 (08:34→18:09)
[2023-02-26] MEDS: MAGNESIUM OXIDE 400 MG TABLET PO (08:34)
[2023-02-26] MEDS: FUROSEMIDE 20 MG TABLET PO (08:34)
[2023-02-26] MEDS: buPROPion HCL SR (12 HR) 150 MG TAB PO ×2 (08:35→18:09)
[2023-02-26] MEDS: amLODIPine BESYLATE 5 MG TABLET 10 MG PO (08:35)
[2023-02-26] MEDS: hydroCHLOROthiazide 25 MG TABLET PO (08:35)
[2023-02-26] MEDS: FERROUS SULFATE 324 MG TABLET PO (08:35)
[2023-02-26] MEDS: ENOXAPARIN 40 MG/0.4 ML SYRINGE SUB-Q (08:35)
[2023-02-26] MEDS: PANTOPRAZOLE SODIUM IV 40 MG VIAL IV PUSH (08:36)
[2023-02-26] MEDS: MELOXICAM 7.5 MG TABLET 15 MG PO (08:36)
[2023-02-26] MEDS: FLUTICASONE PROPIONATE 0.05% NA SPR 16 GM BTL (*BKC) 1 SPRAY NASAL (08:36)
[2023-02-26] MEDS: POTASSIUM CHLORIDE INJ 40 MEQ in SODIUM CHLORIDE 0.9% IV 500 ML 130 MEQ IVPB (10:24)
[2023-02-26] MEDS: KCL 40 MEQ/D5 1/2NS 1,000 ML 125 ML IV CONT (10:24)
--- NOTE | 2023-02-26 12:56 | PM.IMPN ---
Progress Note: A&P Assessment and Plan (1) SBO (small bowel obstruction): Code(s): K56.609 - Unspecified intestinal obstruction, unspecified as to partial versus complete obstruction Status: Acute Assessment and Plan: Admit to regular medical floor Strict NPO NG to low intermittent suction General surgery consult Supportive care IV fluids HPI-Narrative: This is a 57-year-old male with past medical history significant for hypertension, asthma, obesity.? Patient presents to the emergency room due to nausea vomiting abdominal distention constipation for the last few hours denies any hematemesis, coffee-ground emesis, change in stool character, no weight loss, no melena, no bright red blood per rectum, has been in his usual state of health.? Patient had several episodes of vomiting prior to coming to the emergency room and has not been able to pass gas preliminary workup has been significant for small-bowel obstruction.? Patient is been admitted for further evaluation management and treatment. 02/25/2023 interval history:?patient stats this is first time he has SBO, he does not have any history of abdominal surgery, today he passing gas, NG tube is place and good amount draining, patient is seen by surgery services suspect patient has enterocolitis, recommended continue supportive care with hydration, NGtube and NPO, will resolve by itself, continue to monitor and further recommendation to follow. 02/26: GI consult ordered by surgery and pending, still with high output from ng tube, surgery does not think there is an obstruction etiology (2) Nausea & vomiting: Qualifiers: Vomiting type: unspecified Qualified Code(s): R11.2 - Nausea with vomiting, unspecified Code(s): R11.2 - Nausea with vomiting, unspecified Status: Acute Assessment and Plan: NG placed Supportive care Plan DVT prophylaxis with SCDs GI prophylaxis not indicated Code status full code Subjective Date/time seen: 02/26/23 12:56 Interval history: No overnight events noted. No chest pain or shortness of breath. No nausea, vomiting or diarrhea. No fevers or chills. C/o abdominal bloating. Review of Systems Review of Systems: 12 point review of systems was assessed and was negative except as noted in the HPI Exam Narrative: General: No acute distress, alert and oriented per baseline HEENT: Atraumatic, normocephalic, mucous membranes moist CV: Regular rate and rhythm, S1, S2 Lungs: Clear to auscultation bilaterally, no rales or crackles noted, no wheezes, good air entry Abdomen: Soft, nontender, mildly distended, ngt in place, large bilious drainage seen in canister Extremities: Normal to inspection Skin: No rashes noted, no lesions or wounds seen Psych: Euthymic, normal affect Objective Data Vital Signs Vital Signs: Vital Signs - 24 hr 02/25/23 14:00 02/25/23 20:00 02/25/23 22:00 Temperature 98.1 F 99.1 F Pulse Rate 70 70 76 Respiratory Rate 20 20 13 Blood Pressure 120/80 112/66 Pulse Oximetry 94 94 93 Oxygen Delivery Room Air 02/26/23 05:44 02/26/23 08:30 02/26/23 08:35 Temperature 97.5 F L Pulse Rate 72 71 Respiratory Rate 16 Blood Pressure 128/80 Pulse Oximetry 91 92 Oxygen Delivery Room Air Room Air Intake/Output Intake/Output: Intake & Output 02/23/23 02/24/23 02/25/23 02/26/23 23:59 23:59 23:59 23:59 Intake Total 3000 2720 963 Output Total 2125 3450 1000 Balance 875 -730 -37 Meds/Results Medications: Active Medications Generic Name Dose Route Start Last Admin Trade Name Freq PRN Reason Stop Dose Admin Albuterol 2 puff 02/24/23 07:45 Albuterol Sulfate (*Sp) Aerosol 1 Puff INHALATION Q4-6H PRN Shortness Of Breath Amlodipine Besylate 10 mg 02/24/23 09:00 02/26/23 08:35 Amlodipine Besylate 5 Mg Tablet PO 10 mg DAILY MAIKEL Administration Bupropion HCl 150 mg 02/24/23 09:00 02/26/23 08:35
--- NOTE | 2023-02-26 13:48 | WPDGICN ---
Assessment and Plan Assessment and plan (1) Abdominal distension: Code(s): R14.0 - Abdominal distension (gaseous) Status: Acute Assessment and Plan: Abdominal distension may represent enteritis. He does not appear to have an ileus as he has bowel sounds are recent bowel movement. No obvious obstruction. Although this was concern on admission. He may benefit from small-bowel follow-through prior to discharge. Plan for immediate NG tube decompression to continue. Follow-up EGD should not be performed while he is distended in fact this was just accomplished several weeks ago at [facility]. Old records will be requested. Promotility agents such as Reglan may be beneficial after obstruction excluded. (2) Adenomatous duodenal polyp: Code(s): D13.2 - Benign neoplasm of duodenum Status: Acute Assessment and Plan: Patient has a history of adenomatous polyp of the duodenum. These usually are associated with adenomatous polyps of the colon. Apparently this was identified 2020 at [facility]. Old records are being sought. Follow-up colonoscopy at 5 year intervals suggested. Follow-up EGD at 1 year interval advised because of duodenal polyp. This was just accomplished within the last several weeks at [facility]. GI Consult Note Consult date/time: 02/26/23 13:48 Reason for consult: Abdominal distension. HPI: Peter Zuleta is a 57 year old male I am asked to see because of possible enteritis. Patient has a history of a large duodenal adenomatous polyp that was removed from the duodenum via endoscopy in 2020. Initially diagnosed at [facility] in 2020. Patient ultimately had more advance therapy at [facility]. It is felt that this adenomas totally excised. Most recent endoscopy was several weeks ago at [facility]. Patient reports he did well until just before this weekend when he began to have abdominal distension and bloating. He became very uncomfortable. He subsequently presented to [facility] where he was admitted. It was felt he may have had a small bowel obstruction. His imaging studies reveal air-fluid levels in the small bowel. Patient currently is maintained on NG tube decompression. He has had several bowel movements subsequently. Surgery is following the patient. Patient normally does not feel this bloated or distended. He has had no bleeding. He denies any weight loss. Review of Systems Review of Systems: Review of systems is noncontributory. [facility] Social History Social History Smoking status: Former smoker Alcohol intake: current Drinks per week: 6 Substance use: never Lack of Transportation: No Lack of Food: Never True Current Housing: I Have Housing Concerned About Future Housing: No Difficulty Paying Gas/Electric Bills: No Difficulty Paying for Meds: No Currently Unemployed: No Education: High School Diploma/GED Difficulty w/ Childcare or Family Care: No Spiritual care concerns: No Meds Home Medications and Allergies Home Medications Medication Instructions Recorded Confirmed Type albuterol sulfate 90 mcg/actuation 2 puff inhalation Q4-6H PRN 02/23/23 02/24/23 History aerosol inhaler Shortness Of Breath budesonide 160 mcg-glycopyr 9 2 inh inhalation BID 02/23/23 02/24/23 History mcg-formot 4.8 mcg/actuation HFA inhaler (Breztri Aerosphere) bupropion HCl 150 mg tablet,12 hr 150 mg PO BID 02/23/23 02/24/23 History sustained-release buspirone 10 mg tablet 10 mg PO TIDWMEAL 02/23/23 02/24/23 History ferrous sulfate 325 mg (65 mg 325 mg PO DAILY 02/23/23 02/24/23 History iron) tablet furosemide 20 mg tablet 20 mg PO DAILY 02/23/23 02/24/23 History hydrochlorothiazide 25 mg tablet 25 mg PO DAILY 02/23/23 02/24/23 History losartan 100 mg tablet 100 mg PO DAILY 02/23/23 02/24/23
[2023-02-26 13:53] VITALS: BP 126/80; PULSE 74; RESP 18; TEMP 36.5; O2SAT 95
[2023-02-26] MEDS: ALBUTEROL SULFATE (*SP) AEROSOL 1 PUFF 2 PUFF INHALATION (18:10)
[2023-02-26 20:00] VITALS: PULSE 74; RESP 18; O2SAT 95
[2023-02-26 21:27] VITALS: BP 135/80; PULSE 75; RESP 18; TEMP 36.6; O2SAT 93
[2023-02-27] MEDS: MORPHINE SULFATE (*CRX) 2 MG/ML INJ IV PUSH (02:09)
[2023-02-27] MEDS: KCL 40 MEQ/D5 1/2NS 1,000 ML 125 ML IV CONT (04:36)
[2023-02-27 06:01] VITALS: BP 136/81; PULSE 74; RESP 18; TEMP 36.4; O2SAT 98
[2023-02-27] MEDS: MORPHINE SULFATE (*CRX) 4 MG/ML INJ IV PUSH ×2 (06:02→13:20)
[2023-02-27 06:47] LABS: Hematocrit 38.8 % (42.0-52.0); Hemoglobin 12.2 g/dL (14.0-18.0); Mean Corpuscular HGB Conc 31.4 g/dl (32-36); Mean Corpuscular Hemoglobin 23.8 pg (26-34); Mean Corpuscular Volume 75.8 fl (80-100); Mean Platelet Volume 9.7 fl (7.4-10.4); Platelet Count Result 238 k/mm3 (150-375); Red Blood Count 5.12 M/mm3 (4.6-6.20); Red Cell Distribution Width 20.3 % (11.5-14.5); White Blood Count 6.9 K/mm3 (4.5-10.0)
[2023-02-27 07:16] LABS: Anion Gap 8 mmol/L (8-16); Blood Urea Nitrogen 9 mg/dL (9-20); Calcium 7.4 mg/dL (8.4-10.2); Carbon Dioxide 22 mmol/L (22-30); Chloride 106 mmol/L (98-107); Estimated CRCL calculation 100 ml/min; Estimated Glomerular Filt Rate > 60; Glucose 105 mg/dL (65-110); Magnesium 2.2 mg/dL (1.6-2.3); Potassium 3.3 mmol/L (3.4-5.0); Sodium 136 mmol/L (137-145)
--- NOTE | 2023-02-27 08:01 | WPDGIPROGNO ---
Progress Note: A&P Assessment and Plan (1) Abdominal distension: Code(s): R14.0 - Abdominal distension (gaseous) Status: Acute Assessment and Plan: Patient with significant abdominal distention. Plan for small-bowel follow-through today to exclude obstruction. Consider promotility agent such as Reglan if this is negative. Dulcolax suppositories will be utilized. Further recommendations after endoscopy. (2) Adenomatous duodenal polyp: Code(s): D13.2 - Benign neoplasm of duodenum Status: Acute Assessment and Plan: Patient with a known history of adenomatous duodenal polyp. This apparently was resected within the last several years. Currently followed at [facility] follow-up EGD 1 month ago apparently was unremarkable. Old records have been requested. Subjective Date/time seen: 02/27/23 08:01 Interval history: patient alert more comfortable this morning. He reports he is passing flatus but no significant stool yet he states he feels less abdominal pressure. NG tube remains in place at present. Review of Systems Review of Systems: Review of systems noncontributory. Exam Narrative: Physical exam reveals patient to be alert. Vital signs stable. HEENT exam reveals no icterus. Lungs are clear. Heart without murmur. Abdomen is obese. Bowel sounds are present. He has mild tympany. No localized tenderness. No masses. Rectal exam deferred this morning. Objective Data Vital Signs Vital Signs: Vital Signs - 24 hr 02/26/23 08:30 02/26/23 08:35 02/26/23 13:53 Temperature 97.7 F Pulse Rate 71 74 Respiratory Rate 18 Blood Pressure 126/80 Pulse Oximetry 92 95 Oxygen Delivery Room Air Room Air 02/26/23 20:00 02/26/23 21:27 02/27/23 06:01 Temperature 97.8 F 97.6 F Pulse Rate 74 75 74 Respiratory Rate 18 18 18 Blood Pressure 135/80 136/81 Pulse Oximetry 95 93 98 Oxygen Delivery Room Air Intake/Output Intake/Output: Intake & Output 02/24/23 02/25/23 02/26/23 02/27/23 23:59 23:59 23:59 23:59 Intake Total 3680 2540 2683 Output Total 0977 0120 1750 Balance 875 -752 693 Meds/Results Medications: Active Medications Generic Name Dose Route Start Last Admin Trade Name Freq PRN Reason Stop Dose Admin Albuterol 2 puff 02/24/23 07:45 02/26/23 18:10 Albuterol Sulfate (*Sp) Aerosol 1 Puff INHALATION 2 puff Q4-6H PRN Administration Shortness Of Breath Amlodipine Besylate 10 mg 02/24/23 09:00 02/26/23 08:35 Amlodipine Besylate 5 Mg Tablet PO 10 mg DAILY MAIKEL Administration Bupropion HCl 150 mg 02/24/23 09:00 02/26/23 18:09 Bupropion Hcl Sr (12 Hr) 150 Mg Tab PO 150 mg BID MAIKEL Administration Buspirone HCl 10 mg 02/24/23 09:00 02/26/23 18:09 Buspirone Hcl 10 Mg Tablet PO 10 mg TIDWM MAIKEL Administration Enoxaparin Sodium 40 mg 02/25/23 09:00 02/26/23 08:35 Enoxaparin 40 Mg/0.4 Ml Syringe SUB-Q 40 mg DAILY MAIKEL Administration Ferrous Sulfate 324 mg 02/24/23 09:00 02/26/23 08:35 Ferrous Sulfate 324 Mg Tablet PO 324 mg DAILY MAIKEL Administration Fluticasone Propionate 1 spray 02/24/23 09:00 02/26/23 08:36 Fluticasone Propionate 0.05% Na Spr 16 Gm Btl (*Bkc) NASAL 1 spray DAILY MAIKEL Administration Fluticasone/Umeclidinium/Vilanterol 1 puff 02/24/23 09:00 02/25/23 18:50 Fluticasone/Umeclidin/Vilanter 100-62.5-25 Mcg Ellipta INHALATION Not Given DAILY [facility] Furosemide 20 mg 02/24/23 09:00 02/26/23 08:34 Furosemide 20 Mg Tablet PO 20 mg DAILY MAIKEL Administration Hydrochlorothiazide 25 mg 02/24/23 09:00 02/26/23 08:35 Hydrochlorothiazide 25 Mg Tablet PO 25 mg DAILY MAIKEL Administration Ibuprofen 800 mg in 200 mls @ 400 mls/hr 02/24/23 10:14 02/26/23 21:28 Caldolor 800 Mg/200 Ml IVPB 400 mls/hr Q6H PRN Administration Pain Rated 1-3 Potassium Chloride/Dextrose/Sod Cl 1,000 mls @ 125 mls/hr 02/26/23 09:15 02/27
[2023-02-27] MEDS: PANTOPRAZOLE SODIUM IV 40 MG VIAL IV PUSH (08:42)
[2023-02-27] MEDS: ONDANSETRON INJ 4 MG/2 ML VIAL IV PUSH (08:42)
[2023-02-27] MEDS: ENOXAPARIN 40 MG/0.4 ML SYRINGE SUB-Q (08:42)
[2023-02-27] MEDS: FLUTICASONE PROPIONATE 0.05% NA SPR 16 GM BTL (*BKC) 1 SPRAY NASAL (08:42)
[2023-02-27] MEDS: POTASSIUM CHLORIDE INJ 40 MEQ in SODIUM CHLORIDE 0.9% IV 500 ML 130 MEQ IVPB (08:43)
[2023-02-27] MEDS: FLUTICASONE/UMECLIDIN/VILANTER 100-62.5-25 MCG ELLIPTA 1 PUFF INHALATION (09:14)
[2023-02-27 09:16] VITALS: O2SAT 95
--- NOTE | 2023-02-27 12:33 | PM.IMPN ---
Progress Note: A&P Assessment and Plan (1) SBO (small bowel obstruction): Code(s): K56.609 - Unspecified intestinal obstruction, unspecified as to partial versus complete obstruction Status: Acute Assessment and Plan: Admit to regular medical floor Strict NPO NG to low intermittent suction General surgery consult Supportive care IV fluids HPI-Narrative: This is a 57-year-old male with past medical history significant for hypertension, asthma, obesity.? Patient presents to the emergency room due to nausea vomiting abdominal distention constipation for the last few hours denies any hematemesis, coffee-ground emesis, change in stool character, no weight loss, no melena, no bright red blood per rectum, has been in his usual state of health.? Patient had several episodes of vomiting prior to coming to the emergency room and has not been able to pass gas preliminary workup has been significant for small-bowel obstruction.? Patient is been admitted for further evaluation management and treatment. 02/27/2023 interval history:?patient stats this is first time he has SBO, he does not have any history of abdominal surgery, today he passing? gas, NG tube is place and good amount draining, patient was seen by surgery services suspect patient has enterocolitis, recommended continue supportive care with hydration, NGtube? and NPO, however patient continued to have distended abdomen complaint are nausea or vomiting and NG tube is draining, seen by GI and ordered a small-bowel follow-through pending, will continue to monitor and further recommendation to follow. (2) Nausea & vomiting: Qualifiers: Vomiting type: unspecified Qualified Code(s): R11.2 - Nausea with vomiting, unspecified Code(s): R11.2 - Nausea with vomiting, unspecified Status: Acute Assessment and Plan: NG placed Supportive care Plan DVT prophylaxis with SCDs GI prophylaxis not indicated Code status full code Subjective Date/time seen: 02/27/23 12:33 02/27/2023 interval history:?patient stats this is first time he has SBO, he does not have any history of abdominal surgery, today he passing? gas, NG tube is place and good amount draining, patient was seen by surgery services suspect patient has enterocolitis, recommended continue supportive care with hydration, NGtube? and NPO, however patient continued to have distended abdomen complaint are nausea or vomiting and NG tube is draining, seen by GI and ordered a small-bowel follow-through pending, will continue to monitor and further recommendation to follow. Review of Systems Review of Systems: All systems reviewed & are unremarkable except as noted in HPI and below (HPI and those items noted below) Exam Narrative: Morbidly obese Patient is comfortable, NAD HEENT: eyes are clear and none icteric NG tube in place LUNGS: Normal respiratory effort, ABD: Distended Lower extremities: no edema SKIN: nonjaundiced Neuro: grossly intact. Objective Data Vital Signs Vital Signs: Vital Signs - 24 hr 02/26/23 13:53 02/26/23 20:00 02/26/23 21:27 Temperature 97.7 F 97.8 F Pulse Rate 74 74 75 Respiratory Rate 18 18 18 Blood Pressure 126/80 135/80 Pulse Oximetry 95 95 93 Oxygen Delivery Room Air 02/27/23 06:01 02/27/23 09:16 02/27/23 08:00 Temperature 97.6 F Pulse Rate 74 Respiratory Rate 18 Blood Pressure 136/81 Pulse Oximetry 98 95 Oxygen Delivery Room Air Room Air Intake/Output Intake/Output: Intake & Output 02/24/23 02/25/23 02/26/23 02/27/23 23:59 23:59 23:59 23:59 Intake Total 3000 2720 2683 Output Total 2125 3450 1750 Balance 875 -297 933 Meds/Results Medications: Active Medications Generic Name Dose Route Start Last Admin Trade Name Freq PRN Reason Stop Dose Admin Albuterol 2 puff 02/24/23 07:45 02/26/23 18:10 Albuterol Sulfate (*Sp) Aerosol 1 Puff INHALATION 2 puff Q4-6H PRN Administration Shor
--- NOTE | 2023-02-27 13:00 | PM.PNGS ---
Progress Note: A&P Assessment and Plan (1) Gastroenteritis: Code(s): K52.9 - Noninfective gastroenteritis and colitis, unspecified Status: Acute Assessment and Plan: Still very high NG tube output. Diarrhea and bowel movements have stopped. Recommend continue NG suction. Possibly get Gastrografin small bowel series tomorrow. (2) Hypokalemia due to excessive gastrointestinal loss of potassium: Code(s): E87.6 - Hypokalemia Status: Acute Assessment and Plan: Improved but still low at 3.3 today. Subjective Subjective Date/Time Seen: 02/27/23 13:00 Patient reports: no new complaints, pain is less, flatus, no bowel movement (No bowel movement yesterday or last night) and other (Main complaint is that nasogastric tube had to be replaced last night) Review of Systems Review of Systems: All systems reviewed & are unremarkable except as noted in HPI and below (HPI and those items noted below) Constitutional: Constitutional: Denies chills and Denies fever(s) Cardiovascular: Cardiovascular: Denies chest pain, Denies diaphoresis, Denies dyspnea and Denies paroxysmal nocturnal dyspnea Respiratory: Respiratory: Denies chest congestion, Denies cough and Denies dyspnea Integumentary/Breasts: Skin/Breast: Denies lesions and Denies rash Exam Const: General: comfortable and no acute distress; No confusion Orientation/consciousness: patient oriented x3 and No confusion GI: Inspection: distended, obesity and visible herniation GI Palp: Yes Soft to palpation, No Tenderness to palpation present (GI), No Guarding due to palpation present (GI), Yes Hernia present (Umbilical as before) and No Rebound tenderness present Neuro: General: patient oriented x3, no focal motor deficits and No confusion Extrem: General: no calf tenderness and no edema Psych: Affect: normal affect Insight: Good insight present (Psych) Judgement: Good judgement present (Psych) Objective Data Vital Signs Vital Signs: Vital Signs - 24 hr 02/26/23 13:53 02/26/23 20:00 02/26/23 21:27 Temperature 36.5 C 36.6 C Pulse Rate 74 74 75 Respiratory Rate 18 18 18 Blood Pressure 126/80 135/80 Pulse Oximetry 95 95 93 Oxygen Delivery Room Air 02/27/23 06:01 02/27/23 09:16 02/27/23 08:00 Temperature 36.4 C Pulse Rate 74 Respiratory Rate 18 Blood Pressure 136/81 Pulse Oximetry 98 95 Oxygen Delivery Room Air Room Air Intake/Output Intake/Output: Intake & Output 02/24/23 02/25/23 02/26/23 02/27/23 23:59 23:59 23:59 23:59 Intake Total 3000 2720 2683 Output Total 2125 3450 1750 Balance 875 -730 933 NG tube output is less but still 1750 for yesterday. Meds/Results Medications: Active Medications Generic Name Dose Route Start Last Admin Trade Name Freq PRN Reason Stop Dose Admin Albuterol 2 puff 02/24/23 07:45 02/26/23 18:10 Albuterol Sulfate (*Sp) Aerosol 1 Puff INHALATION 2 puff Q4-6H PRN Administration Shortness Of Breath Amlodipine Besylate 10 mg 02/24/23 09:00 02/27/23 08:17 Amlodipine Besylate 5 Mg Tablet PO Not Given DAILY MAIKEL Bupropion HCl 150 mg 02/24/23 09:00 02/27/23 08:17 Bupropion Hcl Sr (12 Hr) 150 Mg Tab PO Not Given BID MAIKEL Buspirone HCl 10 mg 02/24/23 09:00 02/27/23 12:03 Buspirone Hcl 10 Mg Tablet PO Not Given TIDWM MAIKEL Enoxaparin Sodium 40 mg 02/25/23 09:00 02/27/23 08:42 Enoxaparin 40 Mg/0.4 Ml Syringe SUB-Q 40 mg DAILY MAIKEL Administration Ferrous Sulfate 324 mg 02/24/23 09:00 02/27/23 08:18 Ferrous Sulfate 324 Mg Tablet PO Not Given DAILY MAIKEL Fluticasone Propionate 1 spray 02/24/23 09:00 02/27/23 08:42 Fluticasone Propionate 0.05% Na Spr 16 Gm Btl (*Bkc) NASAL 1 spray DAILY MAIKEL Administration Fluticasone/Umeclidinium/Vilanterol 1 puff 02/24/23 09:00 02/27/23 09:14 Fluticasone/Umeclidin/Vilanter 100-62.5-25 Mcg Ellipta INHALATION 1 puff DAILY MAIKEL Administration Furosemide
[2023-02-27 14:00] VITALS: BP 145/88; PULSE 74; RESP 18; TEMP 36.4; O2SAT 97
--- NOTE | 2023-02-27 17:15 | PC.NURSE ---
NGT removed per MD order. Pt tolerated well.
[2023-02-27 20:08] VITALS: BP 141/90; PULSE 88; RESP 20; TEMP 36.8; O2SAT 96
[2023-02-27] MEDS: KCL 40 MEQ/D5 1/2NS 1,000 ML 80 ML IV CONT (23:04)
[2023-02-28 06:00] VITALS: BP 163/93; PULSE 69; RESP 16; TEMP 35.9; O2SAT 97
[2023-02-28 07:29] LABS: Hemoglobin 12.7 g/dL (14.0-18.0); Mean Corpuscular Hemoglobin 23.4 pg (26-34); Mean Corpuscular Volume 75.5 fl (80-100); Mean Platelet Volume 9.6 fl (7.4-10.4); Platelet Count Result 241 k/mm3 (150-375); Red Blood Count 5.43 M/mm3 (4.6-6.20); Red Cell Distribution Width 20.2 % (11.5-14.5); White Blood Count 4.8 K/mm3 (4.5-10.0)
[2023-02-28 07:42] LABS: Anion Gap 7 mmol/L (8-16); Blood Urea Nitrogen 10 mg/dL (9-20); Calcium 8.1 mg/dL (8.4-10.2); Carbon Dioxide 24 mmol/L (22-30); Chloride 107 mmol/L (98-107); Estimated CRCL calculation 100 ml/min; Estimated Glomerular Filt Rate > 60; Glucose 112 mg/dL (65-110); Magnesium 2.2 mg/dL (1.6-2.3); Potassium 3.9 mmol/L (3.4-5.0); Sodium 138 mmol/L (137-145)
[2023-02-28] MEDS: FLUTICASONE/UMECLIDIN/VILANTER 100-62.5-25 MCG ELLIPTA 1 PUFF INHALATION (08:06)
[2023-02-28] MEDS: FERROUS SULFATE 324 MG TABLET PO (08:28)
[2023-02-28] MEDS: LOSARTAN POTASSIUM 100 MG TABLET PO (08:28)
[2023-02-28] MEDS: FUROSEMIDE 20 MG TABLET PO (08:28)
[2023-02-28] MEDS: MELOXICAM 7.5 MG TABLET 15 MG PO (08:28)
[2023-02-28] MEDS: busPIRone HCL 10 MG TABLET PO ×2 (08:28→11:19)
[2023-02-28] MEDS: buPROPion HCL SR (12 HR) 150 MG TAB PO (08:28)
[2023-02-28] MEDS: ENOXAPARIN 40 MG/0.4 ML SYRINGE SUB-Q (08:29)
[2023-02-28] MEDS: MAGNESIUM OXIDE 400 MG TABLET PO (08:29)
[2023-02-28] MEDS: FLUTICASONE PROPIONATE 0.05% NA SPR 16 GM BTL (*BKC) 1 SPRAY NASAL (08:29)
[2023-02-28] MEDS: amLODIPine BESYLATE 5 MG TABLET 10 MG PO (08:29)
[2023-02-28] MEDS: PANTOPRAZOLE 40 MG TABLET PO (08:29)
[2023-02-28] MEDS: ONDANSETRON INJ 4 MG/2 ML VIAL IV PUSH (08:36)
--- NOTE | 2023-02-28 10:22 | PM.PNGS ---
Progress Note: A&P Assessment and Plan (1) Gastroenteritis: Code(s): K52.9 - Noninfective gastroenteritis and colitis, unspecified Status: Acute Assessment and Plan: Upper GI with small bowel series yesterday was normal. NG tube was removed and he is tolerating full liquids. Will advance to a soft diet today. No signs of an obstruction or indication for surgery at this time. Will sign off. Please call with any surgical questions or concerns. (2) Hypokalemia due to excessive gastrointestinal loss of potassium: Code(s): E87.6 - Hypokalemia Status: Acute Assessment and Plan: K 3.9 today. Plan I have discussed the patient's case and plan of care with Dr. Morrison. Subjective Subjective Date/Time Seen: 02/28/23 10:22 Patient reports: no new complaints, tolerating liquids well, flatus and bowel movement Interval history: Patient reports feeling better today, especially following NG removal yesterday. He denies any abdominal pain. He denies nausea or vomiting. Had multiple BMs following UGI/SBFT yesterday and he reports they are becoming slightly more formed this morning. Tolerating full liquids. No other complaints at this time. Exam Const: General: comfortable and no acute distress Orientation/consciousness: patient oriented x3 GI: Inspection: obesity (protuberant abdomen) GI Palp: Yes Soft to palpation, Yes Tenderness to palpation present (GI) (very mild tenderness in the RUQ, reportedly much improved), No Guarding due to palpation present (GI) and No Rebound tenderness present Auscultation: normal bowel sounds Extrem: General: no calf tenderness and no edema Psych: Insight: Good insight present (Psych) Judgement: Good judgement present (Psych) Objective Data Vital Signs Vital Signs: Vital Signs - 24 hr 02/27/23 14:00 02/27/23 20:08 02/27/23 20:00 Temperature 97.5 F L 98.3 F Pulse Rate 74 88 Respiratory Rate 18 20 Blood Pressure 145/88 H 141/90 H Pulse Oximetry 97 96 Oxygen Delivery Room Air 02/28/23 06:00 Temperature 96.6 F L Pulse Rate 69 Respiratory Rate 16 Blood Pressure 163/93 H Pulse Oximetry 97 Oxygen Delivery Intake/Output Intake/Output: Intake & Output 02/25/23 02/26/23 02/27/23 02/28/23 23:59 23:59 23:59 23:59 Intake Total 2720 2683 1860 350 Output Total 3450 1750 Balance -174 275 5002 350 Meds/Results Medications: Active Medications Generic Name Dose Route Start Last Admin Trade Name Freq PRN Reason Stop Dose Admin Albuterol 2 puff 02/24/23 07:45 02/26/23 18:10 Albuterol Sulfate (*Sp) Aerosol 1 Puff INHALATION 2 puff Q4-6H PRN Administration Shortness Of Breath Amlodipine Besylate 10 mg 02/24/23 09:00 02/28/23 08:29 Amlodipine Besylate 5 Mg Tablet PO 10 mg DAILY MAIKEL Administration Bupropion HCl 150 mg 02/24/23 09:00 02/28/23 08:28 Bupropion Hcl Sr (12 Hr) 150 Mg Tab PO 150 mg BID MAIKEL Administration Buspirone HCl 10 mg 02/24/23 09:00 02/28/23 08:28 Buspirone Hcl 10 Mg Tablet PO 10 mg TIDWM MAIKEL Administration Enoxaparin Sodium 40 mg 02/25/23 09:00 02/28/23 08:29 Enoxaparin 40 Mg/0.4 Ml Syringe SUB-Q 40 mg DAILY MAIKEL Administration Ferrous Sulfate 324 mg 02/24/23 09:00 02/28/23 08:28 Ferrous Sulfate 324 Mg Tablet PO 324 mg DAILY MAIKEL Administration Fluticasone Propionate 1 spray 02/24/23 09:00 02/28/23 08:29 Fluticasone Propionate 0.05% Na Spr 16 Gm Btl (*Bkc) NASAL 1 spray DAILY MAIKEL Administration Fluticasone/Umeclidinium/Vilanterol 1 puff 02/24/23 09:00 02/28/23 08:06 Fluticasone/Umeclidin/Vilanter 100-62.5-25 Mcg Ellipta INHALATION 1 puff DAILY MAIKEL Administration Furosemide 20 mg 02/24/23 09:00 02/28/23 08:28 Furosemide 20 Mg Tablet PO 20 mg DAILY MAIKEL Administration Hydrochlorothiazide 25 mg 02/24/23 09:00 02/26/23 08:35 Hydrochlorothiazide 25 Mg Tablet PO 25 mg DAILY MAKIEL Administration Ibuprofen 800
--- NOTE | 2023-02-28 12:04 | PM.IMPN ---
Progress Note: A&P Assessment and Plan (1) SBO (small bowel obstruction): Code(s): K56.609 - Unspecified intestinal obstruction, unspecified as to partial versus complete obstruction Status: Acute Assessment and Plan: Admit to regular medical floor Strict NPO NG to low intermittent suction General surgery consult Supportive care IV fluids HPI-Narrative: This is a 57-year-old male with past medical history significant for hypertension, asthma, obesity.? Patient presents to the emergency room due to nausea vomiting abdominal distention constipation for the last few hours denies any hematemesis, coffee-ground emesis, change in stool character, no weight loss, no melena, no bright red blood per rectum, has been in his usual state of health.? Patient had several episodes of vomiting prior to coming to the emergency room and has not been able to pass gas preliminary workup has been significant for small-bowel obstruction.? Patient is been admitted for further evaluation management and treatment. 02/28/2023 interval history:?patient stats this is first time he has SBO, he does not have any history of abdominal surgery, he was passinggas, NG tube was in place and good amount draining, patient was seen by surgery services suspect patient has enterocolitis, recommended continue supportive care with hydration, NGtube? and NPO, however patient continued to have distended abdomen complaint are nausea or vomiting and NG tube is draining, on 02/27 seen by surgery service and ordered a small-bowel follow-through it showed normal GI track without obstruction, NT tube was removed, today patient is tolerating clear diet and will continue to monitor and will advance diet as tolerated, and further recommendation to follow. (2) Nausea & vomiting: Qualifiers: Vomiting type: unspecified Qualified Code(s): R11.2 - Nausea with vomiting, unspecified Code(s): R11.2 - Nausea with vomiting, unspecified Status: Acute Assessment and Plan: NG placed Supportive care Plan DVT prophylaxis with SCDs GI prophylaxis not indicated Code status full code Subjective Date/time seen: 02/28/23 12:04 HPI-Narrative: This is a 57-year-old male with past medical history significant for hypertension, asthma, obesity.? Patient presents to the emergency room due to nausea vomiting abdominal distention constipation for the last few hours denies any hematemesis, coffee-ground emesis, change in stool character, no weight loss, no melena, no bright red blood per rectum, has been in his usual state of health.? Patient had several episodes of vomiting prior to coming to the emergency room and has not been able to pass gas preliminary workup has been significant for small-bowel obstruction.? Patient is been admitted for further evaluation management and treatment. 02/28/2023 interval history:?patient stats this is first time he has SBO, he does not have any history of abdominal surgery, he was passinggas, NG tube was in place and good amount draining, patient was seen by surgery services suspect patient has enterocolitis, recommended continue supportive care with hydration, NGtube? and NPO, however patient continued to have distended abdomen complaint are nausea or vomiting and NG tube is draining, on 02/27 seen by surgery service and ordered a small-bowel follow-through it showed normal GI track without obstruction, NT tube was removed, today patient is tolerating clear diet and will continue to monitor and will advance diet as tolerated, and further recommendation to follow. Interval history: No overnight events noted. No chest pain or shortness of breath. No nausea, vomiting or diarrhea. No fevers or chills. C/o abdominal bloating. Review of Systems Review of Systems: All systems reviewed & are unremarkable except as noted in HPI and below (HPI and those items noted below) Exam Narrative: Morbidly obese Patient is comfor
--- NOTE | 2023-02-28 13:20 | WPDGIPROGNO ---
Progress Note: A&P Assessment and Plan (1) Abdominal distension: Code(s): R14.0 - Abdominal distension (gaseous) Status: Acute Assessment and Plan: Abdominal distention resolved. Likely was an ileus. Plan to advance diet as tolerated. 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 Currently followed at [facility]. He should have follow-up EGD at least annually. Recent EGD within the last month. Plan for patient follow-up with [facility] as already scheduled after discharge. (3) Umbilical hernia: Code(s): K42.9 - Umbilical hernia without obstruction or gangrene Status: Acute Assessment and Plan: Patient has umbilical hernia followed by surgery patient should follow-up with surgery for potential repair. Subjective Date/time seen: 02/28/23 13:20 Interval history: Patient alert comfortable this morning. Small-bowel follow-through with no evidence for blockage. Patient has had NG tube removed. Tolerating liquid diet without difficulty. No immediate problems. Review of Systems Review of Systems: Review of systems is noncontributory. Exam Narrative: Physical exam reveals patient be alert. Vital signs stable. HEENT exam is unremarkable. Patient is anicteric. Lungs are clear to auscultation and percussion. Heart is without murmur or extra sounds. Abdomen bowel sounds present soft nontender with no hepatosplenomegaly. Ventral hernia identified and umbilicus. Objective Data Vital Signs Vital Signs: Vital Signs - 24 hr 02/27/23 14:00 02/27/23 20:08 02/27/23 20:00 Temperature 97.5 F L 98.3 F Pulse Rate 74 88 Respiratory Rate 18 20 Blood Pressure 145/88 H 141/90 H Pulse Oximetry 97 96 Oxygen Delivery Room Air 02/28/23 06:00 Temperature 96.6 F L Pulse Rate 69 Respiratory Rate 16 Blood Pressure 163/93 H Pulse Oximetry 97 Oxygen Delivery Intake/Output Intake/Output: Intake & Output 02/25/23 02/26/23 02/27/23 02/28/23 23:59 23:59 23:59 23:59 Intake Total 2720 2683 1860 590 Output Total 3450 1750 Balance -978 143 4252 590 Meds/Results Medications: Active Medications Generic Name Dose Route Start Last Admin Trade Name Freq PRN Reason Stop Dose Admin Albuterol 2 puff 02/24/23 07:45 02/26/23 18:10 Albuterol Sulfate (*Sp) Aerosol 1 Puff INHALATION 2 puff Q4-6H PRN Administration Shortness Of Breath Amlodipine Besylate 10 mg 02/24/23 09:00 02/28/23 08:29 Amlodipine Besylate 5 Mg Tablet PO 10 mg DAILY MAIKEL Administration Bupropion HCl 150 mg 02/24/23 09:00 02/28/23 08:28 Bupropion Hcl Sr (12 Hr) 150 Mg Tab PO 150 mg BID MAIKEL Administration Buspirone HCl 10 mg 02/24/23 09:00 02/28/23 11:19 Buspirone Hcl 10 Mg Tablet PO 10 mg TIDWM MAIKEL Administration Enoxaparin Sodium 40 mg 02/25/23 09:00 02/28/23 08:29 Enoxaparin 40 Mg/0.4 Ml Syringe SUB-Q 40 mg DAILY MAIKEL Administration Ferrous Sulfate 324 mg 02/24/23 09:00 02/28/23 08:28 Ferrous Sulfate 324 Mg Tablet PO 324 mg DAILY MAIKEL Administration Fluticasone Propionate 1 spray 02/24/23 09:00 02/28/23 08:29 Fluticasone Propionate 0.05% Na Spr 16 Gm Btl (*Bkc) NASAL 1 spray DAILY MAIKEL Administration Fluticasone/Umeclidinium/Vilanterol 1 puff 02/24/23 09:00 02/28/23 08:06 Fluticasone/Umeclidin/Vilanter 100-62.5-25 Mcg Ellipta INHALATION 1 puff DAILY MAIKEL Administration Furosemide 20 mg 02/24/23 09:00 02/28/23 08:28 Furosemide 20 Mg Tablet PO 20 mg DAILY MAIKEL Administration Hydrochlorothiazide 25 mg 02/24/23 09:00 02/26/23 08:35 Hydrochlorothiazide 25 Mg Tablet PO 25 mg DAILY MAIKEL Administration Ibuprofen 800 mg in 200 mls @ 400 mls/hr 02/24/23 10:14
[2023-02-28 14:00] VITALS: BP 128/83; PULSE 75; RESP 18; TEMP 35.6; O2SAT 95
--- NOTE | 2023-02-28 15:39 | PM.DS ---
DS: Admitting Diagnosis Discharge Date 02/28/2023 Admitting Diagnosis Nausea or vomiting DS: Discharge Diagnosis Discharge Diagnosis (1) SBO (small bowel obstruction): Code(s): K56.609 - Unspecified intestinal obstruction, unspecified as to partial versus complete obstruction Status: Acute Assessment and Plan: Admit to regular medical floor Strict NPO NG to low intermittent suction General surgery consult Supportive care IV fluids HPI-Narrative: This is a 57-year-old male with past medical history significant for hypertension, asthma, obesity.? Patient presents to the emergency room due to nausea vomiting abdominal distention constipation for the last few hours denies any hematemesis, coffee-ground emesis, change in stool character, no weight loss, no melena, no bright red blood per rectum, has been in his usual state of health.? Patient had several episodes of vomiting prior to coming to the emergency room and has not been able to pass gas preliminary workup has been significant for small-bowel obstruction.? Patient is been admitted for further evaluation management and treatment. 02/28/2023 interval history:?patient stats this is first time he has SBO, he does not have any history of abdominal surgery, he was passinggas, NG tube was in place and good amount draining, patient was seen by surgery services suspect patient has enterocolitis, recommended continue supportive care with hydration, NGtube? and NPO, however patient continued to have distended abdomen complaint are nausea or vomiting and NG tube is draining, on 02/27 seen by surgery service and ordered a small-bowel follow-through it showed normal GI track without obstruction, NT tube was removed, today patient is tolerating clear diet and will continue to monitor and will advance diet as tolerated, and further recommendation to follow. (2) Nausea & vomiting: Qualifiers: Vomiting type: unspecified Qualified Code(s): R11.2 - Nausea with vomiting, unspecified Code(s): R11.2 - Nausea with vomiting, unspecified Status: Acute Assessment and Plan: NG placed Supportive care Plan DVT prophylaxis with SCDs GI prophylaxis not indicated Code status full code DS: Summary Hospital Course Reason for hospitalization: Nausea vomiting Narrative: This is a 57-year-old male with past medical history significant for hypertension, asthma, obesity.? Patient presents to the emergency room due to nausea vomiting abdominal distention constipation for the last few hours denies any hematemesis, coffee-ground emesis, change in stool character, no weight loss, no melena, no bright red blood per rectum, has been in his usual state of health.? Patient had several episodes of vomiting prior to coming to the emergency room and has not been able to pass gas preliminary workup has been significant for fluid feel the small bowel loops air-fluid levels.? Patient is been admitted for further evaluation management and treatment. Hospital Course: patient stats this is first time he has SBO, he does not have any history of abdominal surgery, he was passinggas, NG tube was in place and good amount draining, patient was seen by surgery services suspect patient has enterocolitis, recommended continue supportive care with hydration, NGtube? and NPO, however patient continued to have distended abdomen complaint are nausea or vomiting and NG tube is draining, on 02/27 seen by surgery service? and ordered a small-bowel follow-through it showed normal GI track without obstruction, NT tube was removed, today patient is tolerating clear diet and? will continue to monitor and will? advance diet as tolerated, and? further recommendation to follow. Patient is able to tolerate his diet, clinically stable seen by GI, recommended to patient to follow-up with his GI at [facility]. Time Spent with Patient Time attestation: Total time spent providing and/or coordinating disch
== END 2023-02-28 16:15 | disposition home or self-care (01) | DRG 390 ==
LOC: ANHED 02-24 03:27 → ANH3MEDSUR 02-24 04:14
PROVIDERS: Emergency Medicine; Admitting Provider Internal Medicine; Emergency Provider Physician Assistant; Visit Provider Family Medicine
DX: K56.609 Unspecified intestinal obstruction, unspecified as to partial versus complete obstruction (principal); K52.9 Noninfective gastroenteritis and colitis, unspecified; E87.6 Hypokalemia; J44.9 Chronic obstructive pulmonary disease, unspecified; I10 Essential (primary) hypertension; K21.9 Gastro-esophageal reflux disease without esophagitis; Z87.891 Personal history of nicotine dependence
CPT/HCPCS: 36415; 71045; 74018; 74177; 74240; 74248; 80048; 80053; 81001; 83605; 83690; 83735; 85025; 85027; 94640; 96361; 96374; 96375; 99285; A9270; C9113; J1650; J1741; J2270; J2405; J3480; J7030; J7040; Q9967